=== PATIENT | male | born 1965 | race Caucasian/White ===

== ENCOUNTER 2019-06-04 23:39 | Emergency (ER) | payer MEDICAID ==
[~2019-06-04] VITALS: Ht 177.8 cm; Wt 90.7 kg
[2019-06-05] MEDS ORDERED: NORVASC10 MG PO (00:14)
[2019-06-05] MEDS ORDERED: ASPIR 8181 MG PO (00:15)
[2019-06-05] MEDS ORDERED: ATORVASTATIN CA80 MG PO (00:17)
[2019-06-05] MEDS ORDERED: CLOPIDOGREL75 MG PO (00:17)
[2019-06-05] MEDS ORDERED: COREG25 MG PO (00:17)
[2019-06-05] MEDS ORDERED: FLOMAX0.4 MG PO (00:17)
[2019-06-05] MEDS ORDERED: HYDRALAZINE HCL10 MG PO (00:19)
[2019-06-05] MEDS ORDERED: FLONASE ALLERG9.9 ML NAS (00:19)
[2019-06-05] MEDS ORDERED: ISOSORBIDE MONO60 MG PO (00:20)
[2019-06-05] MEDS ORDERED: CLARITIN10 M2 PO (00:20)
[2019-06-05] MEDS ORDERED: MIRALAX17 GM PO (00:21)
[2019-06-05] MEDS ORDERED: PANTOPRAZOLE SO40 MG PO (00:21)
[2019-06-05] MEDS ORDERED: TORSEMIDE20 MG PO (00:22)
[2019-06-05] MEDS ORDERED: REFRESH CELLUV1 EACH OD (00:22)
[2019-06-05] MEDS ORDERED: VITAMIN D400 UNIT PO (00:24)
--- NOTE | 2019-06-07 19:55 | EKG ---
[facility] [address] [place] [id number] Signed Normal sinus rhythm Possible Left atrial enlargement Left axis deviation Left ventricular hypertrophy with QRS widening Cannot rule out Septal infarct , age undetermined Abnormal ECG No previous ECGs available Confirmed by HOLLAND SHERIDAN MD ([id number] on 06/07/2019 7:55:11 PM Electronically Signed By: HOLLAND SHERIDAN MD 06/07/191954 PATIENT NAME: RHONDA MORRISON Electrocardiogram DATE OF : 61 PHYSICIAN: HOLLAND SHERIDAN MD REPORT #: [id number] REPORT IS CONFIDENTIAL AND NOT TO BE RELEASED WITHOUT AUTHORIZATION
== END 2019-06-05 01:50 | disposition home or self-care (01) ==
LOC: ED 23:39
DX: I12.9 Hypertensive chronic kidney disease with stage 1 through stage 4 chronic kidney disease, or unspecified chronic kidney disease (principal); E11.22 Type 2 diabetes mellitus with diabetic chronic kidney disease; N18.9 Chronic kidney disease, unspecified; Z86.73 Personal history of transient ischemic attack (TIA), and cerebral infarction without residual deficits; Z87.891 Personal history of nicotine dependence; Z88.0 Allergy status to penicillin; Z79.899 Other long term (current) drug therapy; Z79.82 Long term (current) use of aspirin; Z79.01 Long term (current) use of anticoagulants
CPT/HCPCS: 71045; 80053; 84484; 85025; 93005; 93010; 99284-25